=== PATIENT | female | born 1995 | race Caucasian/White ===

== ENCOUNTER 2016-07-23 03:50 | Emergency (ER) | payer OTHER ==
[2016-07-23 05:38] LABS: BASOPHILS # (AUTO) 0.3 K/uL (0.00-0.22); BASOPHILS % (AUTO) 2.9 % (0.0-2.0); EOSINOPHILS # (AUTO) 0.2 K/uL (0-0.4); EOSINOPHILS % (AUTO) 2.2 % (0.0-4.0); HEMATOCRIT 45.9 % (36-48); HEMOGLOBIN 14.7 g/dL (12.0-16.0); LYMPHOCYTES # (AUTO) 2.1 K/uL (2.5-16.5); LYMPHOCYTES % (AUTO) 20.5 % (20.5-51.1); MEAN CORPUSCULAR HEMOGLOBIN 28 pg (27-31); MEAN CORPUSCULAR HGB CONC 32 g/dL (33-37); MEAN CORPUSCULAR VOLUME 87 fL (80-94); MONOCYTES # (AUTO) 0.4 K/uL (0.8-1.0); MONOCYTES % (AUTO) 3.9 % (1.7-9.3); NEUTROPHILS # (AUTO) 7.4 K/uL (1.8-7.7); NEUTROPHILS % (AUTO) 70.5 % (42.2-75.2); PLATELET COUNT (AUTO) 267 K/uL (140-450); RED CELL DISTRIBUTION WIDTH 11.8 % (11.6-13.7); WHITE BLOOD COUNT (AUTO) 10.4 K/uL (4.8-10.8)
[2016-07-23] MEDS: KETOROLAC 60 MG/2 ML VIAL IM ONE ×2 (05:38→05:40)
[2016-07-23 06:04] LABS: ALBUMIN 3.7 g/dL (3.4-5.0); ANION GAP 10.9 (8-16); CALCIUM 8.5 mg/dL (8.5-10.1); CREATININE 0.8 mg/dL (0.6-1.3); POTASSIUM 3.9 mmol/L (3.5-5.1); TOTAL BILIRUBIN 0.4 mg/dL (0.0-1.0); TOTAL PROTEIN, SERUM 8.2 g/dL (6.4-8.2)
[2016-07-23 06:23] VITALS: BP 119/68
[2016-07-23 07:03] LABS: BILIRUBIN,URINE NEGATIVE (NEGATIVE); BLOOD, URINE 3+ (NEGATIVE); COLOR,URINE YELLOW (YELLOW); LEUKOCYTE ESTERASE ,URINE NEGATIVE (NEGATIVE); NITRITE, URINE NEGATIVE (NEGATIVE); PROTEIN,URINE NEGATIVE (NEGATIVE); UGLUCOSE NEGATIVE (NEGATIVE); UROBILINOGEN,URINE 0.2 EU/dL (0.2 - 1)
[2016-07-23 07:24] LABS: APPEARANCE,URINE HAZY (CLEAR)
[2016-07-23 07:26] LABS: BACTERIA,URINE 1+ /HPF (None Seen); RBC,URINE NONE SEEN /HPF (0-5); WBC,URINE 0-5 (RARE) /HPF (0-5)
== END 2016-07-23 06:24 | disposition home or self-care (01) ==
LOC: MED 03:50
DX: N93.9 Abnormal uterine and vaginal bleeding, unspecified (principal); N92.0 Excessive and frequent menstruation with regular cycle
CPT/HCPCS: 36415; 80053; 81001; 81025; 82150; 83690; 85025; 87086; 96372; 99284; J1885

== ENCOUNTER 2018-03-31 17:15 | Emergency (ER) | payer OTHER ==
[~2018-03-31] VITALS: Ht 167.6 cm; Wt 131.3 kg
[2018-03-31 17:20] VITALS: BP 124/88
[2018-03-31] MEDS: diphenhydrAMINE 50 MG/ML VIAL IM ONE (18:33)
[2018-03-31] MEDS: PROCHLORPERAZINE 10 MG/2 ML VIAL IM ONE (18:34)
[2018-03-31 18:42] VITALS: BP 124/88
== END 2018-03-31 18:41 | disposition home or self-care (01) ==
LOC: MED 17:15
DX: G43.909 Migraine, unspecified, not intractable, without status migrainosus (principal); I10 Essential (primary) hypertension; Z88.0 Allergy status to penicillin
CPT/HCPCS: 93005; 96372; 99283; J0780; J1200

== ENCOUNTER 2018-08-21 18:50 | Emergency (ER) | payer OTHER ==
[~2018-08-21] VITALS: Ht 167.6 cm; Wt 131.5 kg
[2018-08-21 18:54] VITALS: BP 152/86
--- NOTE | 2018-08-21 20:00 | NUR ---
23 Y/O F PRESENTED TO ED WITH C/O VAGINAL BLEEDING, CRAMPING, AND R LOWER BACK PAIN X 2 HOURS. PER PT, " I FOUND OUT I WAS YESTERDAY. I NOTICED I WAS BLEEDING AND A BIG CHUNK OF BLOOD IN THE TOILET." TENDERNESS TO R LOWER BACK. PAIN 5/10, CRAMPING. ERMD NOTIIFED. WILL CONTINUE TO MONITOR.
--- NOTE | 2018-08-21 20:03 | NUR ---
PT AMBULATORY TO BED 4.
--- NOTE | 2018-08-21 20:29 | NUR ---
Ultrasound at bedside.
[2018-08-21 20:38] LABS: BASOPHILS # (AUTO) 0.1 K/uL (0.00-0.22); BASOPHILS % (AUTO) 0.4 % (0.0-2.0); EOSINOPHILS # (AUTO) 0.4 K/uL (0-0.4); EOSINOPHILS % (AUTO) 2.5 % (0.0-4.0); HEMOGLOBIN 14.7 g/dL (12.0-16.0); LYMPHOCYTES # (AUTO) 3.8 K/uL (2.5-16.5); LYMPHOCYTES % (AUTO) 26.6 % (20.5-51.1); MEAN CORPUSCULAR HEMOGLOBIN 29 pg (27-31); MEAN CORPUSCULAR HGB CONC 33 g/dL (33-37); MEAN CORPUSCULAR VOLUME 86.1 fL (80-94); MONOCYTES # (AUTO) 0.9 K/uL (0.8-1.0); MONOCYTES % (AUTO) 6.6 % (1.7-9.3); NEUTROPHILS # (AUTO) 9.1 K/uL (1.8-7.7); NEUTROPHILS % (AUTO) 63.9 % (42.2-75.2); PLATELET COUNT (AUTO) 248 K/uL (140-450); RED BLOOD CELL COUNT(AUTO) 5.11 MIL/uL (4.20-5.40); RED CELL DISTRIBUTION WIDTH 12.9 % (11.6-13.7); WHITE BLOOD COUNT (AUTO) 14.2 K/uL (4.8-10.8)
[2018-08-21 20:53] LABS: APPEARANCE,URINE CLEAR (CLEAR); BILIRUBIN,URINE NEGATIVE (NEGATIVE); BLOOD, URINE NEGATIVE (NEGATIVE); COLOR,URINE YELLOW (YELLOW); LEUKOCYTE ESTERASE ,URINE NEGATIVE (NEGATIVE); NITRITE, URINE NEGATIVE (NEGATIVE); UGLUCOSE NEGATIVE (NEGATIVE)
--- NOTE | 2018-08-21 22:05 | NUR ---
PT AWAKE. VSS. WILL CONTINUE TO MONITOR.
--- NOTE | 2018-08-21 22:29 | NUR ---
Dr. Medrano evaluating patient at bedside.
--- NOTE | 2018-08-21 22:45 | NUR ---
Patient discharged with v/s stable. Written and verbal after care instructions given and explained. Patient alert, oriented and verbalized understanding of instructions. Ambulatory with steady gait. All questions addressed prior to discharge. ID band removed. Patient advised to follow up with PMD. Rx of Benadryl and Motrin given. Patient educated on indication of medication including possible reaction and side effects. Opportunity to ask questions provided and answered.
== END 2018-08-21 22:45 | disposition home or self-care (01) ==
LOC: MED 18:50
DX: N83.201 Unspecified ovarian cyst, right side (principal); F31.9 Bipolar disorder, unspecified; Z88.0 Allergy status to penicillin
CPT/HCPCS: 36415; 76817; 81003; 81025; 84702; 85025; 86900; 86901; 99284; Q0092